=== PATIENT | male | born 1970 | race African-American/Black ===

== ENCOUNTER 2020-02-26 22:27 | Inpatient (IN) | payer OTHER ==
[~2020-02-26] VITALS: Ht 182.9 cm; Wt 188.7 kg
[2020-02-26] MEDS ORDERED: LABETALOL 5MG/ML SYR 20 MG/4 ML SYRINGE IV ONE (22:45)
[2020-02-26 23:48] LABS: BASOPHILS % 0.4 % (0.0-2.0); CHLORIDE 106 mEq/L (98-107); EOSINOPHILS % 1.2 % (0.0-5.0); HEMOGLOBIN. 15.8 g/dL (14.0-18.0); LYMPHOCYTES % 25.3 % (20.0-50.0); MEAN CORPUSCULAR HEMOGLOBIN 29.6 pg (28.0-32.0); MEAN CORPUSCULAR VOLUME 88.3 fL (80.0-94.0); MEAN PLATELET VOLUME 8.4 fl (7.4-10.4); MONOCYTES % 8.7 % (2.0-8.0); NEUTROPHILS % 64.4 % (40.0-76.0); PLATELET 289 x1000/uL (130-400); RED BLOOD CELL COUNT 5.32 mill/uL (4.7-6.1); RED CELL DISTRIBUTION WIDTH 14.7 % (11.6-14.6)
[2020-02-26 23:53] LABS: ETHANOL BLOOD < 10 mg/dL
[2020-02-26 23:56] LABS: LDL CHOLESTEROL 41 mg/dL (5-100)
[2020-02-26 23:57] LABS: CREATINE KINASE 203 IU/L (39-308)
[2020-02-27 00:07] LABS: PROTHROMBIN TIME 10.5 sec (9.6-11.0)
[2020-02-27 05:11] VITALS: BP 170/108
[2020-02-27] MEDS: CLONIDINE 0.2MG TABLET PO PRN ×2 (06:06→17:15)
[2020-02-27 08:00] VITALS: BP 185/106
[2020-02-27] MEDS ORDERED: ENOXAPARIN 40MG/0.4ML SYR SUBCUT SCH (09:00)
[2020-02-27] MEDS: ENOXAPARIN 40MG/0.4ML SYR SUBCUT SCH ×2 (09:07→21:33)
[2020-02-27 12:00] VITALS: BP 190/140
[2020-02-27] MEDS ORDERED: INFLUENZA VACCINE 05/PF 0.5 ML VIAL IM ONE (12:00)
[2020-02-27] MEDS ORDERED: AMLODIPINE 10MG TABLET PO SCH ×2 (12:00→12:15)
[2020-02-27] MEDS ORDERED: PNEUMOCOCCAL 23-VAL P-SAC VAC 0.5 ML IM ONE (12:00)
[2020-02-27] MEDS ORDERED: DEXTROSE 50% WATER 50ML SYRINGE IV PRN (12:15)
[2020-02-27] MEDS: INSULIN LISPRO 100 UNITS/ML SUBCUT SCH ×3 (12:15→21:00)
[2020-02-27] MEDS: LOSARTAN POTASSIUM 100 MG TABLET PO SCH (12:38)
[2020-02-27 16:00] VITALS: BP 186/121
[2020-02-27] MEDS: BLOOD SUGAR DIAGNOSTIC STRIP TEST SCH ×2 (17:11→21:33)
[2020-02-27 20:00] VITALS: BP 162/85
[2020-02-27 21:03] LABS: BASOPHILS % 0.2 % (0.0-2.0); EOSINOPHILS % 1.1 % (0.0-5.0); HEMATOCRIT. 45.2 % (42.0-52.0); LYMPHOCYTES % 20.5 % (20.0-50.0); MEAN CORPUSCULAR HEMOGLOBIN 29.4 pg (28.0-32.0); MEAN CORPUSCULAR VOLUME 88.6 fL (80.0-94.0); MONOCYTES % 8.1 % (2.0-8.0); NEUTROPHILS % 70.1 % (40.0-76.0); PLATELET 258 x1000/uL (130-400); RED CELL DISTRIBUTION WIDTH 14.9 % (11.6-14.6)
[2020-02-27 21:16] LABS: CHLORIDE 107 mEq/L (98-107)
[2020-02-27 21:23] LABS: LDL CHOLESTEROL 47 mg/dL (5-100)
[2020-02-27 21:25] LABS: HDL CHOLESTEROL 37 mg/dL (40-59)
[2020-02-27] MEDS: CLONIDINE 0.1MG TABLET PO PRN (21:45)
[2020-02-28] VITALS (7 sets, daily range): BP systolic 148–196; BP diastolic 84–111
[2020-02-28] MEDS: CLONIDINE 0.2MG TABLET PO PRN (04:47)
[2020-02-28] MEDS: BLOOD SUGAR DIAGNOSTIC STRIP TEST SCH ×4 (06:21→20:38)
[2020-02-28] MEDS: INSULIN LISPRO 100 UNITS/ML SUBCUT SCH ×4 (06:44→20:38)
[2020-02-28] MEDS: ENOXAPARIN 40MG/0.4ML SYR SUBCUT SCH ×2 (09:00→21:04)
[2020-02-28] MEDS ORDERED: AMLO5TAB4 PO (09:09)
[2020-02-28] MEDS: LOSARTAN POTASSIUM 100 MG TABLET PO SCH (09:15)
[2020-02-28] MEDS: CLONIDINE 0.1MG TABLET PO PRN (09:16)
[2020-02-28] MEDS ORDERED: HYDRALAZINE HCL 100MG TABLET PO NR (10:30)
[2020-02-28] MEDS: AMLODIPINE 10MG TABLET PO SCH (11:03)
[2020-02-28] MEDS: HYDROCHLOROTHIAZIDE 25MG TABLET PO SCH (11:04)
[2020-02-28] MEDS: HYDRALAZINE HCL 100MG TABLET PO SCH ×2 (14:11→21:03)
[2020-02-28] MEDS: HYDROCODONE/ACETAMINOPHEN 5/325MG TABLET PO PRN (22:17)
[2020-02-29] VITALS: BP 127/71
[2020-02-29 04:00] VITALS: BP 105/52
[2020-02-29] MEDS: HYDRALAZINE HCL 100MG TABLET PO SCH ×2 (05:38→14:12)
[2020-02-29] MEDS: BLOOD SUGAR DIAGNOSTIC STRIP TEST SCH ×2 (07:04→12:22)
[2020-02-29] MEDS: INSULIN LISPRO 100 UNITS/ML SUBCUT SCH ×2 (07:04→12:15)
[2020-02-29 07:32] LABS: BASOPHILS % 0.3 % (0.0-2.0); HEMATOCRIT. 45.9 % (42.0-52.0); HEMOGLOBIN. 15.6 g/dL (14.0-18.0); LYMPHOCYTES % 19.5 % (20.0-50.0); MEAN CORPUSCULAR VOLUME 88.3 fL (80.0-94.0); MEAN PLATELET VOLUME 8.2 fl (7.4-10.4); MONOCYTES % 8.3 % (2.0-8.0); NEUTROPHILS % 70.9 % (40.0-76.0); PLATELET 268 x1000/uL (130-400); RED BLOOD CELL COUNT 5.19 mill/uL (4.7-6.1); RED CELL DISTRIBUTION WIDTH 14.8 % (11.6-14.6)
[2020-02-29 08:00] VITALS: BP 165/115
[2020-02-29 08:12] LABS: CHLORIDE 101 mEq/L (98-107)
[2020-02-29] MEDS: HYDROCHLOROTHIAZIDE 25MG TABLET PO SCH (08:47)
[2020-02-29] MEDS: AMLODIPINE 10MG TABLET PO SCH (08:47)
[2020-02-29] MEDS: LOSARTAN POTASSIUM 100 MG TABLET PO SCH (08:47)
[2020-02-29] MEDS: ENOXAPARIN 40MG/0.4ML SYR SUBCUT SCH (08:48)
[2020-02-29 12:00] VITALS: BP 132/86
[2020-02-29] MEDS: HYDROCODONE/ACETAMINOPHEN 5/325MG TABLET PO PRN (12:38)
[2020-02-29 13:32] VITALS: BP 146/88
[2020-02-29] MEDS: CLONIDINE 0.2MG TABLET PO PRN (15:58)
[2020-02-29 16:00] VITALS: BP 160/100
== END 2020-02-29 17:05 | disposition home or self-care (01) | DRG 199 ==
LOC: ER 22:27 → 5WST 02-27 01:00 → EDBEDREQSVC 02-27 01:08 → EDBEDREQTM 02-27 01:08 → EDBEDREQ 02-27 01:08 → EDBEDREQDT 02-27 01:08 → ENRESERV 02-27 03:28 → 5WST 02-27 04:48
PROVIDERS: ADMIT Internal Medicine; ATTEND Internal Medicine
DX: I16.0 Hypertensive urgency (principal); I10 Essential (primary) hypertension; I67.4 Hypertensive encephalopathy; E66.01 Morbid (severe) obesity due to excess calories; K08.89 Other specified disorders of teeth and supporting structures; R73.9 Hyperglycemia, unspecified; G89.29 Other chronic pain; M54.5 Low back pain; R26.9 Unspecified abnormalities of gait and mobility; G96.08 Other cranial cerebrospinal fluid leak; I62.03 Nontraumatic chronic subdural hemorrhage; R47.1 Dysarthria and anarthria; K14.0 Glossitis; Z91.19 Patient's noncompliance with other medical treatment and regimen; Z91.14 Patient's other noncompliance with medication regimen; Z68.43 Body mass index [BMI] 50.0-59.9, adult; Z87.891 Personal history of nicotine dependence; Z82.49 Family history of ischemic heart disease and other diseases of the circulatory system; Z79.899 Other long term (current) drug therapy; D18.1 Lymphangioma, any site
CPT/HCPCS: 36415; 71045; 80048; 80053; 80061; 80320; 82550; 82962; 83036; 83721; 83880; 84443; 84484; 85025; 90686; 90732; 93005; 93306; 97162; 97166; 99285; C1893; J1650; G0480